=== PATIENT | male | born 1975 | race Caucasian/White ===

== ENCOUNTER 2024-08-29 20:24 | Emergency (ER) | payer MEDICAID ==
[~2024-08-29] VITALS: Ht 190.5 cm; Wt 225.0 kg
[2024-08-29] MEDS ORDERED: DICYCLOMINE HCL INJ 20 MG/2 ML AMPUL IM ONE (23:44)
[2024-08-29] MEDS ORDERED: ONDANSETRON HCL/PF 4 MG/2 ML VIAL ONE (23:44)
[2024-08-29 23:45] LABS: BASOPHILS % (AUTO) 0.1 % (0.0-2.0); EOSINOPHILS # (AUTO) 0.2 K/uL (0.0-0.7); EOSINOPHILS % (AUTO) 2.4 % (0.0-6.0); HEMATOCRIT 44 % (39-51); HEMOGLOBIN 14.7 g/dL (13.5-17.5); LYMPHOCYTES # (AUTO) 1.6 K/uL (0.8-4.8); LYMPHOCYTES % (AUTO) 21.3 % (20.0-44.0); MEAN CORPUSCULAR HEMOGLOBIN 30 PG (26.0-33.0); MEAN CORPUSCULAR HGB CONC 33 g/dl (31.0-36.0); MEAN CORPUSCULAR VOLUME 91 fL (80-96); MONOCYTES # (AUTO) 0.5 K/uL (0.1-1.30); MONOCYTES % (AUTO) 6.6 % (2.0-12.0); NEUTROPHILS # (AUTO) 5.4 K/uL (1.8-8.9); NEUTROPHILS % (AUTO) 69.6 % (43.0-81.0); PLATELET COUNT (AUTO) 194 K/uL (150-450); RED BLOOD CELL COUNT(AUTO) 4.88 MIL/uL (4.5-6.0); RED CELL DISTRIBUTION WIDTH 14.1 % (11.5-15.0); WHITE BLOOD COUNT (AUTO) 7.7 K/uL (4.3-11.0)
[2024-08-29 23:55] LABS: CALCIUM, SERUM 8.9 mg/dL (8.5-10.1); CREATININE 2.8 mg/dL (0.6-1.3); POTASSIUM 3.9 mmol/L (3.5-5.1)
[2024-08-29] MEDS: IV NS 0.9% 1,000 ML BAG IV ONE (23:59)
[2024-08-29] MEDS: DICYCLOMINE HCL INJ 20 MG/2 ML AMPUL IM ONE (23:59)
[2024-08-30] MEDS: ONDANSETRON HCL/PF 4 MG/2 ML VIAL IVP ONE
[2024-08-30 00:01] LABS: ALBUMIN 4.2 g/dL (3.4-5.0); BILIRUBIN,DIRECT 0.2 mg/dL (0.0-0.2); BILIRUBIN,TOTAL 0.7 mg/dL (0.2-1.0); TOTAL PROTEIN, SERUM 8.1 g/dL (6.4-8.2)
[2024-08-30] MEDS ORDERED: DICY10CA37 PO (00:36)
[2024-08-30] MEDS ORDERED: ONDA4TAB5 PO (00:36)
[2024-08-30 00:46] VITALS: BP 135/70; TEMP 97.7; O2SAT 99
== END 2024-08-30 00:46 | disposition home or self-care (01) ==
LOC: ER 20:32
DX: N17.9 Acute kidney failure, unspecified (principal); T50.995A Adverse effect of other drugs, medicaments and biological substances, initial encounter; E86.0 Dehydration; I10 Essential (primary) hypertension; R11.2 Nausea with vomiting, unspecified; R19.7 Diarrhea, unspecified; Y92.89 Other specified places as the place of occurrence of the external cause
CPT/HCPCS: 99284; 96361; 96372; 85025; 80048; 83690; 80076; 36415; 96374; J2405 ×2; J7030; J0500